=== PATIENT | male | born 1965 | race Caucasian/White ===

== ENCOUNTER → 2018-01-19 | Outpatient (CLI) | payer SELFPAY ==
--- NOTE | 2018-01-19 13:19 | KCIC ---
PROCEDURE: CHEST PA LATERAL CLINICAL INDICATION: Cough, chest congestion for 3 weeks. COMPARISON: None FINDINGS: No pneumothorax identified. Cardiac and mediastinal contours unremarkable. No pulmonary consolidation or acute airspace disease. No acute osseous abnormalities identified. IMPRESSION: No pulmonary consolidation or acute airspace disease. Electronically signed by: Mt Navarro DO (01/19/2018 1:15 PM) [facility]
== END | disposition home or self-care (01) ==
LOC: KCIC 12:44
DX: R09.89 Other specified symptoms and signs involving the circulatory and respiratory systems (principal); R05 Cough
CPT/HCPCS: 71046